=== PATIENT | male | born 1990 | race Caucasian/White ===

== ENCOUNTER 2017-05-22 19:51 | Emergency (ER) | payer SELFPAY ==
[2017-05-22 20:01] VITALS: BP 153/75
[2017-05-22] MEDS ORDERED: Ketorolac INJ* 60 MG/2 ML VIAL IM ONE (20:55)
[2017-05-22] MEDS ORDERED: Clindamycin CAP* 150 MG PO ONE (21:00)
--- NOTE | 2017-05-22 21:27 | ED ---
Throat Pain/Nasal Congestion - HPI Summary HPI Summary: Patient presents with one week of intermittent dental pain from broken teeth and mild facial swelling. He went to [facility] who would not help him since he didn't have insurance and doesn't have the money to pay. He has used ibuprofen intermittently with mild relief. He denies fever, chills, or drainage , but chewing is painful. He is able to open his mouth with only mild discomfort and denies difficulty swallowing. - History of Current Complaint Chief Complaint: EDDentalPain Time Seen by Provider: 05/22/17 20:49 Hx Obtained From: Patient Onset/Duration: Lasting Weeks - 1, Still Present Severity: Moderate Associated Signs And Symptoms: Positive: Negative Cough: None - Allergies/Home Medications Allergies/Adverse Reactions: Allergies Allergy/AdvReac Type Severity Reaction Status Date / Time Penicillins [PCN] Allergy Hives Verified 05/22/17 21:37 PMH/Surg Hx/FS Hx/Imm Hx Endocrine/Hematology History: Denies: Hx Blood Disorders Respiratory History: Reports: Hx Seasonal Allergies Denies: Hx Asthma Sensory History: Reports: Hx Contacts or Glasses Opthamlomology History: Reports: Hx Contacts or Glasses Psychiatric History: Denies: Hx Anxiety, Hx Depression, Hx Substance Abuse - Surgical History Surgery Procedure, Year, and Place: tonsillectomy - Immunization History Date of Tetanus Vaccine: PT STATES UNSURE Date of Influenza Vaccine: NONE Infectious Disease History: No Infectious Disease History: Denies: Traveled Outside the [place] in Last 30 Days - Family History Known Family History: Positive: Diabetes, Other - cancer - Social History Occupation: Unemployed Lives: Alone Alcohol Use: Rare Hx Substance Use: No Substance Use Type: Reports: None Smoking Status (MU): Former Smoker Review of Systems Negative: Fever, Chills Positive: Dental Pain. Negative: Sore Throat, Ear Ache, Nasal Discharge Negative: Headache All Other Systems Reviewed And Are Negative: Yes Physical Exam Triage Information Reviewed: Yes Vital Signs On Initial Exam: Initial Vitals Temp Pulse Resp BP Pulse Ox 97.5 F 85 19 153/75 100 05/22/17 19:59 05/22/17 19:59 05/22/17 19:59 05/22/17 19:59 05/22/17 19:59 Vital Signs Reviewed: Yes Appearance: Positive: Well-Appearing, Well-Nourished, Pain Distress Skin: Positive: Warm, Skin Color Reflects Adequate Perfusion, Dry, Soft Head/Face: Positive: Normal Head/Face Inspection Eyes: Positive: EOMI, BARBI, Conjunctiva Clear ENT: Positive: Hearing grossly normal Dental: Positive: Dental Fracture @ - left lower second molar; right upper second molar. Negative: Abscess @ Neck: Positive: Supple, Nontender, No Lymphadenopathy Respiratory/Lung Sounds: Positive: Breath Sounds Present Cardiovascular: Positive: RRR Neurological: Positive: Sensory/Motor Intact, Alert, Oriented to Person Place, Time Psychiatric: Positive: Affect/Mood Appropriate AVPU Assessment: Alert Diagnostics - Vital Signs Vital Signs Temp Pulse Resp BP Pulse Ox 05/22/17 19:59 97.5 F 85 19 153/75 100 - Laboratory Lab Statement: Any lab studies that have been ordered have been reviewed, and results considered in the medical decision making process. EENT Course/Dx - Differential Diagnoses Differential Diagnoses: Dental Abscess, Dental Caries, Fracture, Fractured Tooth , Mastoiditis, Periodontic Abscess, Periodontic Disease, Post-Extraction Pain - Diagnoses Provider Diagnoses: Dental infection Discharge - Discharge Plan Condition: Stable Disposition: HOME Prescriptions: Clindamycin CAP* [Cleocin 150 MG CAP*] 450 mg PO Q8HR #90 cap Ibuprofen TAB* [Motrin TAB* 800 MG] 800 mg PO Q8HR PRN #30 tab PRN Reason: Pain Patient Education Materials: Toothache (ED) Referrals: Man Alfaro MD [Primary Care Provider] - Additional Instructions: Please take the antibiotic prescribed until it is completely gone. Begin taking ibuprofen 800mg three times daily with meals tomorrow evening for the next 3-5 days. Call one of the number provided to make an appointment with a dentist for definitive care.
== END 2017-05-22 21:47 | disposition home or self-care (01) ==
LOC: ED 19:51
DX: K04.7 Periapical abscess without sinus (principal); K08.89 Other specified disorders of teeth and supporting structures; Z87.891 Personal history of nicotine dependence
CPT/HCPCS: 96372; 99282; A9270-GY; J1885

== ENCOUNTER → 2017-09-01 16:58 | Emergency (ER) | payer SELFPAY ==
[~2017-09-01 16:58] MED LIST: Famotidine IV* 10 MG/ML 2 ML (20 mg) IV SLOW PU ONE; NS 0.9% 1000 ML* 1,000 ML IV ONE; diPHENhydraMINE IV* 50 MG/ML 1 ml VIAL (BENADRYL) SLOW PUSH ONE; methylPREDNISolone 125 MG* 2 ML VIAL IV ONE
[2017-09-01 21:24] VITALS: BP 115/81
--- NOTE | 2017-09-09 12:48 | ED ---
Gareth Richard Alfonso, aylinibed for Elva Henderson MD on 09/01/17 at 203 . Progress - Progress Note Progress Note: REEVALUATION AT 2034 This patient is a 27 year old M presenting to [facility] accompanied by mother s/p a bee sting at his left ankle earlier today. Pt self administered an Epi Pen at 1620 with good effect. No throat tightening, no wheezing, no lip or facial swelling. Pt given solumedrol 125mg, famotidine 20mg and benadryl 50mg IV in the ED. Pt's mother comes to get us at 2034, stating pt is completely back to normal and wants to go home. Has been observed in the ED for possible rebound after epinephrine for four hours. Patient reports tiredness, mild nausea, mild lightheadedness, and mild pruritus. He lives with his mother. Mother agrees to watch the patient closely over these next two days. Mother agrees to drive the patient home today. Patient reports having Zofran and Pepcid at home. exam: Negative pharyngeal swelling. Negative wheezing. No restriction of breathing. beesting sites on left ankle with redness, no drainage, no red streaks. Advised to continue benadryl, pepcid and prednisone as directed. Course/Dx - Diagnoses Provider Diagnoses: Allergic reaction to bee sting, Anaphylactic reaction The documentation as recorded by the Gareth sal Alfonso accurately reflects the service I personally performed and the decisions made by , Elva Henderson MD.
--- NOTE | 2017-09-22 22:44 | ED ---
Donte Richard Thomas, scribed for Jacinto Casillas MD on 09/01/17 at 1724 . Allergic Reaction/Systemic - HPI Summary HPI Summary: The pt is a 27 y/o M presenting to the ED c/o diffuse pruritus and hives s/p being stung three times on his left ankle by yellow jackets today at 16:15. He has a Hx of allergic reactions to insect stings. Shortly after being stung, the patient self-administered his EpiPen at 16:20. He did not take any other medications. The pt rates the pain 5/10. Pt additionally nausea. Pt denies tongue swelling, lip swelling, and throat tightening. PMHx: seasonal allergies, bee allergy. PSHx: tonsillectomy. SHx: current smoker, rare alcohol use. FHx: [place] , [place]. He is accompanied by his mother. - History of Current Complaint Chief Complaint: EDAllergicReaction Time Seen by Provider: 09/01/17 17:13 Hx Obtained From: Patient, Family/Light [employer] - mother is in the room Onset/Duration: Sudden Onset, Started hours ago - stung by yellow jackets today at 16:15, Still Present Timing: Constant Pain Intensity: 5 Pain Scale Used: 0-10 Numeric Location: Diffuse Character: Pruritus, Pain, Hives Aggravating Factor(s): Nothing Alleviating Factor(s): Epinephrine Associated Signs And Symptoms: Positive: Nausea. Negative: Throat Tightening, Other: - NEGATIVE: tongue swelling, lip swelling - Related Hx Possible Reaction To: Insect - Stung 3x by yellow jackets - Allergies/Home Medications Allergies/Adverse Reactions: Allergies Allergy/AdvReac Type Severity Reaction Status Date / Time Penicillins [PCN] Allergy Hives Verified 09/01/17 17:00 PMH/Surg Hx/FS Hx/Imm Hx Previously Healthy: No Endocrine/Hematology History: Reports: Other Endocrine/Hematological Disorders - Hx of bee allergy Denies: Hx Blood Disorders Respiratory History: Reports: Hx Seasonal Allergies Denies: Hx Asthma Sensory History: Reports: Hx Contacts or Glasses Opthamlomology History: Reports: Hx Contacts or Glasses Psychiatric History: Denies: Hx Anxiety, Hx Depression, Hx Substance Abuse - Surgical History Surgery Procedure, Year, and Place: tonsillectomy - Immunization History Date of Tetanus Vaccine: PT STATES UNSURE Date of Influenza Vaccine: NONE Infectious Disease History: No Infectious Disease History: Denies: Traveled Outside the [place] in Last 30 Days - Family History Known Family History: Positive: Diabetes, Other - cancer - Social History Alcohol Use: Rare Hx Substance Use: No Substance Use Type: Reports: None Hx Tobacco Use: Yes Smoking Status (MU): Current Every Day Smoker Review of Systems Negative: Fever Negative: Other - NEGATIVE: throat tightening, lip swelling, tongue swelling Positive: Other - Diffuse pruritus, hives Neurological: Negative All Other Systems Reviewed And Are Negative: Yes Physical Exam Triage Information Reviewed: Yes Vital Signs On Initial Exam: Initial Vitals Temp Pulse Resp BP Pulse Ox 98.7 F 81 20 163/93 98 09/01/17 17:00 09/01/17 17:00 09/01/17 17:00 09/01/17 17:00 09/01/17 17:00 Vital Signs Reviewed: Yes Appearance: Positive: Well-Appearing, No Pain Distress Skin: Positive: Warm, Skin Color Reflects Adequate Perfusion, Other - no hives. Head/Face: Positive: Normal Head/Face Inspection Eyes: Positive: EOMI ENT: Positive: Normal ENT inspection, Pharynx normal, Other - no stridor. Voice is clear. Lips and tongue and eyelids are normal size. Negative: Tonsillar swelling, Muffled/hoarse voice Neck: Positive: Nontender Respiratory/Lung Sounds: Positive: Clear to Auscultation, Breath Sounds Present Cardiovascular: Positive: RRR. Negative: Murmur Abdomen Description: Positive: Nontender Musculoskeletal: Positive: Strength/ROM Intact Neurological: Positive: Sensory/Motor Intact, Alert, Oriented to Person Place, Time, CN Intact II-III Psychiatric: Positive: Normal - [place] Coma Scale Best Eye Response: 4 - Spontaneous Best Motor Response: 6 - Obeys Commands Best Verbal Response: 5 - Oriented Coma Scale Total: 15 Diagnostics - Vital Signs Vital Signs Temp Pulse Resp BP Pulse Ox 09/01/17 17:00 98.7 F 81 20 163/93 98 - Laboratory Lab Statement: Any lab studies that have been ordered have been reviewed, and results considered in the medical decision making process. Allergic Reaction Course/Dx - Course Assessment/Plan: The pt is a 27 y/o M c/o diffuse pruritus and hives s/p being stung three times on his left ankle by yellow jackets today at 16:15. Pt denies tongue swelling, lip swelling, and throat tightening. In the ED course the patient was given Pepcid, IV fluids, Benadryl, and Solu-Medrol. The patient was observed in the ED for a couple hours. - Diagnoses Provider Diagnoses: Allergic reaction to bee sting Discharge - Discharge Plan Condition: Good Disposition: OTHER Discharge Disposition Comment: sign out Dr sterling with reeval and dispo pending 1899 The documentation as recorded by the Donte sal Thomas accurately reflects the service I personally performed and the decisions made by , Jacinto Casillas MD.
== END | disposition home or self-care (01) ==
LOC: ED 16:58
DX: T63.441A Toxic effect of venom of bees, accidental (unintentional), initial encounter (principal); Y92.9 Unspecified place or not applicable; T78.2XXA Anaphylactic shock, unspecified, initial encounter; X58.XXXA Exposure to other specified factors, initial encounter
CPT/HCPCS: 96360; 96374; 96375; 99284; J1200; J2930